=== PATIENT | female | born 1935 | race Caucasian/White ===

== ENCOUNTER → 2023-11-28 09:10 | Outpatient (CLI) | payer OTHER, SELFPAY ==
--- NOTE | 2023-11-28 09:15 | DI.RAD.S_ITS ---
PROCEDURE: XR LUMBAR SPINE MIN 4V INDICATIONS: BACK PAIN TECHNIQUE: 5 views of the lumbar spine were acquired, including bilateral oblique views. COMPARISON: None. FINDINGS: Bones: 5 nonrib-bearing vertebrae are present. Mild levocurvature centered L1. Extensive degenerative change with multilevel severe disc height loss and lumbar facet arthropathy. No vertebral body compression fractures. No suspicious bony lesions. Soft tissues: Overlying bowel gas pattern is normal. No suspicious soft tissue calcifications. Oblique images: No pars defects. IMPRESSION: Extensive degenerative change. No acute bony abnormality. Dictated by: Ki Pathak M.D. on 11/28/2023 at 11:06 Approved by: Ki Pathak M.D. on 11/28/2023 at 11:07
--- NOTE | 2023-11-28 11:18 | DI.RAD.S_ITS ---
PROCEDURE: XR KNEE LT 3V INDICATIONS: knee djd TECHNIQUE: Three views of the knee were acquired. COMPARISON: None. FINDINGS: Bones: No fractures or dislocations. No suspicious bony lesions. Mild to moderate lateral and medial compartment joint space loss and moderate tricompartment marginal spur formation. Soft tissues: No joint effusion. No suspicious soft tissue calcifications. Mild peripheral vascular calcification. 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 Dictated by: Nancy Mendoza M.D. on 11/28/2023 at 15:30 Approved by: Nancy Mendoza M.D. on 11/28/2023 at 15:31
--- NOTE | 2023-11-28 11:18 | DI.RAD.S_ITS ---
PROCEDURE: XR KNEE RT 3V INDICATIONS: knee djd TECHNIQUE: 3 views of the knee were acquired. COMPARISON: None. FINDINGS: Bones: No fractures or dislocations. Mild to moderate medial and lateral compartment joint space loss. Very small marginal spurs. No suspicious bony lesions. Soft tissues: No joint effusion. No suspicious soft tissue calcifications. Mild vascular calcification. IMPRESSION: Joint space loss without significant spur formation. Dictated by: Nancy Mendoza M.D. on 11/28/2023 at 15:29 Approved by: Nancy Mendoza M.D. on 11/28/2023 at 15:30
== END ==
PROVIDERS: PCP Family Medicine; Referring Provider Physical Medicine & Rehabilitation; Visit Provider Physical Medicine & Rehabilitation
DX: M47.816 Spondylosis without myelopathy or radiculopathy, lumbar region (principal); M17.0 Bilateral primary osteoarthritis of knee; M48.062 Spinal stenosis, lumbar region with neurogenic claudication; M41.26 Other idiopathic scoliosis, lumbar region; M54.9 Dorsalgia, unspecified
CPT/HCPCS: 72110; 73562; 99214

== ENCOUNTER → 2023-12-11 08:28 | Outpatient (CLI) | payer OTHER, SELFPAY ==
--- NOTE | 2023-12-11 08:29 | DI.MRI.S_ITS ---
PROCEDURE: MR LUMBAR SPINE WO CON INDICATIONS: Multilevel spinal stenosis scoliosis TECHNIQUE: Noncontrast sagittal T1 spin echo and T2 fast echo, sagittal STIR, and T2 fast spin echo through the lumbar spine. In cases with scoliosis, additional coronal T2 fast spin echo may be performed. COMPARISON: [facility], MR, LUMBAR SPINE W/O CONTRAST, 02/11/2014, 14:06. [facility] [place], RF, LUMBAR TRANSLAMINAR, 04/17/2014, 9:38. [facility], CR, XR LUMBAR SPINE MIN 4V, 11/28/2023, 9:18. FINDINGS: Image quality: Excellent. Alignment and Curvature: There is minimal retrolisthesis seen at L1-L2, L2-L3, and L4-L5. Minimal anterolisthesis can be seen at the L3-L4 level. [id number]-[id number] levoconvex lumbar scoliosis is seen. Bone Marrow: Marrow is of normal overall signal. Scattered foci are seen, which are hyperintense on T1-weighted and T2-weighted imaging, which are most consistent with benign vertebral body hemangiomas. The most prominent of these is seen within the L3 vertebral body. No acute vertebral body compression fractures. Spinal Cord: Conus medullaris terminates at the L1 level. Visualized cord demonstrates normal signal and size. Paraspinous Soft Tissues: No paravertebral masses. T12-L1: Normal appearance. L1-L2: Moderate loss of disc height is seen. Loss of disc signal is seen. Moderate generalized disc bulge is seen. There is a superimposed central disc protrusion. Endplate irregularity can be seen. Mild facet joint hypertrophy is seen. Moderate bilateral neural foraminal narrowing is seen. Mild central canal narrowing is seen. These imaging findings have progressed compared to the prior study. L2-L3: The disc height is well-preserved. Loss of disc signal is seen at this level. Moderate generalized disc bulge is seen. Mild facet joint hypertrophy is seen. There is moderate right-sided and mild left-sided neural foraminal narrowing. Moderate central canal narrowing is seen. These imaging findings have progressed compared to the prior study. L3-L4: Mild loss of disc height is seen. Loss of disc signal is seen. Moderate generalized disc bulge is seen. There is a central disc extrusion seen, with superior migration of the disc material. At least moderate facet hypertrophy can be seen. Associated hypertrophy of the ligamentum flavum can be seen. At least moderate bilateral neural foraminal narrowing can be seen. Severe central canal narrowing is seen, as on series 6, image 18. These degenerative changes are clearly progressed compared to 2014. L4-L5: Moderate to severe loss of disc height and disc signal can be seen on the left. Bridging endplate osteophytes can be seen on the left, as on series 2 image 4. At least moderate disc bulge is seen, which is eccentric to the left. Moderate facet joint hypertrophy is seen. Associated hypertrophy of the ligamentum flavum can be seen. There is moderate right-sided and at least moderate left-sided neural foraminal narrowing. There is a degree of compression seen upon the exiting left L4 nerve root. Moderate to severe central canal narrowing is seen, as on series 6, image 22. These degenerative changes are more prominent than in 2014. L5-S1: The disc height is well-preserved. Loss of disc signal is seen at this level. Moderate disc bulge is seen, which is eccentric to the left. There is a superimposed central disc protrusion. Moderate to prominent facet hypertrophy is seen. There is at least moderate bilateral neural foraminal narrowing, right worse than left. Moderate central canal narrowing is seen. In 2014, there was a central/right disc protrusion, which has improved compared to the prior. IMPRESSION: Multiple levels of lumbar spine degenerative change can be seen, which are progressed at several levels compared to 2014. [id number]-[id number] levoconvex lumbar scoliosis. Dictated by: Gómez Fitzgerald M.D. on 12/11/2023 at 11:13 Approved by: Gómez Fitzgerald M.D. on 12/11/2023 at 11:21
== END ==
PROVIDERS: PCP Family Medicine; Referring Provider Physical Medicine & Rehabilitation; Visit Provider Physical Medicine & Rehabilitation
DX: M48.062 Spinal stenosis, lumbar region with neurogenic claudication (principal); M47.816 Spondylosis without myelopathy or radiculopathy, lumbar region; M47.817 Spondylosis without myelopathy or radiculopathy, lumbosacral region; M41.9 Scoliosis, unspecified
CPT/HCPCS: 72148

== ENCOUNTER 2024-03-11 13:53 | Outpatient (CLI) | payer OTHER, SELFPAY ==
[2024-03-11] VITALS (11 sets, daily range): BP systolic 124–229; BP diastolic 8–104; PULSE 56–71; RESP 12–18; TEMP 35.7; O2SAT 97–100
--- NOTE | 2024-03-11 14:30 | DI.RAD.S_ITS ---
PROCEDURE: PAIN L INTERLAMINAR/CAUDAL INJ INDICATIONS: para right L4-5 translaminar ELIO COMPARISON: None. FINDINGS: Fluoroscopic spot filming was performed to verify placement of spinal needles at the L4-L5 level(s), as labeled on the films. Appropriate location(s) of the needle tip(s) was confirmed by injection of iodinated contrast. Surgical clips are partially seen in the pelvis. IMPRESSION: L4-L5 fluoroscopic image guidance. Please see operative note for full details. Dictated by: Bob Wells M.D. on 03/11/2024 at 16:08 Approved by: Bob Wells M.D. on 03/11/2024 at 16:08
--- NOTE | 2024-03-11 14:51 | PC.NURSE ---
Hypertensive on check-in. Repeat X 3, see flowchart. Patient asymptomatic. Dr. Pink aware.
[2024-03-11] MEDS: MIDAZOLAM 2 MG/2 ML VIAL IV (14:57)
[2024-03-11] MEDS: BUPIVACAINE 0.25% (PF) VIAL 2 ML INJ (15:03)
[2024-03-11] MEDS: iopamidoL 15 ML VIAL 3 ML INJ (15:03)
[2024-03-11] MEDS: DEXAMETHASONE 10 MG/ML VIAL INJ (15:03)
[2024-03-11] MEDS: BETAMETHASONE 30 MG/5 ML MDV 6 MG INJ (15:03)
--- NOTE | 2024-03-11 15:18 | P.PCN_ITS ---
Date/Time/Diagnoses Date of procedure: 03/11/24 Time of procedure: 15:18 Pre-procedure diagnosis: 1. HNP WITH RADICULAR FEATURES, 2. MULTILEVEL CENTRAL STENOSIS, Post-procedure diagnosis: same Procedure Notes Procedure: 1. FLUOROSCOPICALLY GUIDED CONTRAST CONTROLLED INTERLAMINAR EPIDURAL STEROID INJECTION - L3/4 Indications: Sadie is referred by Dr. Celestin for treatment of Bilateral Foraminal Stenosis L>R LE symptoms. Physician: Jarred Pink Total Fluoroscopy time (seconds): 7 Total sedation minutes: 13 Complications: none Procedure in detail & Post-procedure care: FINDINGS Multilevel Central Spinal Stenosis with Nerve Root Compression DESCRIPTION OF PROCEDURE Fluoroscopically guided, contrast-controlled L3/4 translaminar epidural steroid injection. Following review of allergy and review of potential side effects and complications, including, but not necessarily limited to, infection, allergic reaction, local tissue breakdown, temporary as well as permanent nerve injury, paralysis, stroke and possible , the patient indicated that the patient understood and agreed to proceed. An informed consent document was signed by the patient, witnessed by a nurse, and placed in the patient's chart. Additionally, other treatment options including modalities, medications, and physical therapy were reviewed with the patient. After review of previous anaesthesic history and IV conscious sedation the patient was deemed safe to proceed with today?s procedure with IV conscious sedation as ASA class II designation. Safety time-out was performed to confirm patient ID, procedure to be performed and site of procedure. IV sedation was accomplished with a combination of 2mg of Versed was administered by the RN after DO order, titrated to patient comfort during the course of the procedure while the patient remained responsive to all verbal commands. In the prone position, following sterile prep and drape of the lumbar region, the L3/4 translaminar space was identified fluoroscopically. The skin was anesthetized via a 25-gauge, 1.5-inch needle with 1% lidocaine solution. At this point, a 22-gauge short bevel spinal needle was atraumatically introduced and advanced under fluoroscopic guidance into the region of the L3/4 translaminar space. Depth was confirmed on lateral view. Radiological data, including multiple fluoroscopic views of the lumbar spine, reveal a spinal needle at the L3/4 translaminar space. Lateral views then show placement of the needle in the epidural space. Subsequent views show contrast material flowing superiorly and inferiorly in the epidural space. No vascular or intrathecal uptake is observed. At this point, using loss of resistance technique with saline and air, the epidural space was entered. This was confirmed following negative aspiration with injection of approximately 1.5 cc of Isovue 200, showing excellent epidural flow without vascular or intrathecal uptake. At this point, 1cc of 1% lidocaine solution combined with 2cc or 10mg of dexamethasone and 6mg of betamethasone was injected without incident. The patient tolerated the procedure well without signs or symptoms of complications prior to transfer to the recovery area continued monitoring without incident. The patient was then transferred to the recovery area where they were observed for an appropriate period of time after the injection. The patient reported a VAS score of 6 prior to the procedure and a post- procedure VAS of 0. POST OP INSTRUCTIONS The patient was provided a Pain Log to continue to record their response to the target-specific procedure prior to follow-up visit with their referring physician. Additionally, specific post-injection care instructions and a contact number to our office were provided if concerns arise regarding possible complications associated with the procedure are suspected.
== END 2024-03-11 15:27 | disposition home or self-care (01) ==
PROVIDERS: PCP Internal Medicine; Referring Provider Physical Medicine & Rehabilitation; Visit Provider Physical Medicine & Rehabilitation
DX: M51.16 Intervertebral disc disorders with radiculopathy, lumbar region (principal); M48.061 Spinal stenosis, lumbar region without neurogenic claudication
CPT/HCPCS: 62323; 99152; J0702; J1100; J2250; J3490

== ENCOUNTER 2025-07-29 08:33 | Outpatient (CLI) | payer OTHER, SELFPAY ==
[2025-07-29 09:25] VITALS: BP 175/74; PULSE 64; RESP 16; TEMP 36.4; O2SAT 94
[2025-07-29 09:55] VITALS: BP 195/63; PULSE 64; RESP 12; O2SAT 99
[2025-07-29 10:00] VITALS: BP 186/80; RESP 12; O2SAT 97
[2025-07-29 10:10] VITALS: BP 156/78; PULSE 63; RESP 16; O2SAT 96
--- NOTE | 2025-07-29 12:55 | PM.PROC.IR.1 ---
Date/Time/Diagnoses Date of procedure: 06/03/25 Time of procedure: 09:30 Pre-procedure diagnosis: Low back/sacroiliac joint pain/dysfunction Post-procedure diagnosis: same Procedure Notes Procedure: Bilateral sacroiliac joint injection Indications: Low back/sacroiliac joint pain/dysfunction Physician: Leroy Youssef Total sedation minutes: 0 Complications: none Procedure in detail & Post-procedure care: Patient is here for the planned procedure today as noted. No significant change since the last office visit. For additional clinical scenario please see those office notes. Focused exam: Vital signs reviewed as charted on intake. Gen: Well developed. No acute distress. CV: RRR, no M/R/G Chest: Non-labored breathing, CTAB. Psych: Alert and well-oriented. Mood/Affect: normal. Patient suitable for the planned procedure today: Yes === The following procedure was performed today: Sacroiliac joint injection with fluoroscopic guidance ([id number]) Approach: Posterior, inferior pole Laterality: Bilateral Soft tissue: [1% lidocaine 2 mL] Injectate: [1 mL of methylprednisolone (80mg/mL) in 5 mL 1% lidocaine] distributed equally Fluoroscopy Agent: Isovue 300-M 1.5 mL Notes: Preprocedure pain 6/10, postprocedure pain 1/10. Procedure: Informed consent was obtained and all patient questions were answered. After discussing the risks, benefits, and alternatives to the procedure, the patient expressed understanding and wished to proceed. The patient was brought to the procedure suite and placed in the prone position, and prepped and draped in a sterile fashion. A pre-procedural pause was conducted to verify: correct patient identity, procedure to be performed and as applicable, correct side and site, correct patient position, and any special requirements. The fluoroscopic C-arm was positioned for optimal visualization of the targeted sacroiliac (SI) joint. The inferior portion of the SI joint was localized under fluoroscopic visualization and local anesthetic was utilized for soft tissue local anesthesia. A 22 gauge spinal needle was inserted into the fluoroscopically hyperlucent region within the SI joint. If noted above, the noted contrast agent was injected and a partial arthrogram was obtained. Multiplanar imaging was performed for confirmation and appropriate images were saved. The steroid/anesthetic solution noted above was then injected into the SI joint. Procedure was repeated on the other side. The patient tolerated the procedure well and was discharged after an appropriate period of observation. If there are any complications or concerns, the patient was instructed to call us. The patient is to follow-up with the ordering provider in 2-3 weeks/as planned. This note was compiled using voice recognition software and therefore may contain typos. Please contact the author with any questions or concerns.
== END 2025-07-29 10:17 | disposition home or self-care (01) ==
LOC: RAD 08:33
PROVIDERS: PCP Internal Medicine; Referring Provider Physical Medicine & Rehabilitation; Visit Provider Physical Medicine & Rehabilitation
DX: M53.3 Sacrococcygeal disorders, not elsewhere classified (principal); M54.50 Low back pain, unspecified
CPT/HCPCS: 27096